=== PATIENT | female | born 1960 | race Caucasian/White ===

== ENCOUNTER 2017-02-14 22:22 | Inpatient (IN) | payer OTHER ==
[~2017-02-14] VITALS: Ht 170.2 cm; Wt 84.6 kg
[~2017-02-14 22:22] MED LIST: ALBUTEROL2.5 MG/3 M INH; ASPIR-LOW81 MG PO; AZITHROMYCIN500 MG PO; BENZONATATE100 MG PO; CLARITIN10 MG PO; COMBIVENT RESPIM4 GM INH; DILTIAZEM ER120 M1 PO; DOCUSATE CALCI240 MG PO; FAMOTIDINE20 MG PO; FLONASE ALLERG9.9 ML NS; FUROSEMIDE40 MG PO; IPRAT-ALBUT 0.5-3 ML INH; KEFLEX500 MG PO; MAGNESIUM400 MG PO; METOPROLOL TART25 MG PO; MIRALAX17 GM PO; NICORETTE2 MG MM; NICOTINE PATCH1 EA TD; NORCO 5-325 TA1 EACH PO; POTASSIUM CHLO20 ME1 PO; PREDNISONE20 MG PO; TYLENOL325 MG PO
[2017-02-14] MEDS ORDERED: OSTERA TABLET1 EACH PO (22:36)
--- NOTE | 2017-02-15 03:00 | NUR ---
PATIENT RESTING IN BED. WEARING BIPAP MASK AT THIS TIME. RR 24. O2 SAT 100%. IV FLUIDS INFUSING. CALL LIGHT IN REACH.
--- NOTE | 2017-02-15 03:18 | NUR ---
PT ARRIVES TO CCU ROOM 126, SLIDES OVER TO BED HERSELF FROM STRETCHER. ACCOMPANIED BY RT WHO IMMEDIATELY PLACES PT ON BIPAP 12/5 FIO2 30%. LUNGS VERY DIM AND TIGHT THROUGHOUT WITH SLIGHT EXP WHEEZES HEARD THROUGHOUT. PT DENIES NEED TO VOID AT THIS TIME. SLEEPY AND SOB WITH TALKING SO WILL HOLD MAJORITY OF ADMISSION QUESTIONS UNTIL LATER TIME. IVF STARTED AT 125ML/HR. SIDE RAILS UP AND BED ALARM ON. ISOLATION PRECAUTIONS IN PLACE PT IS POSITIVE FOR INFLUENZA B.
--- NOTE | 2017-02-15 04:45 | NUR ---
RT IN TO DO NEB THROUGH BIPAP AND DRAW ABG. ASSESSMENT DONE. PT STILL VERY SLEEPY.
--- NOTE | 2017-02-15 05:40 | NUR ---
PT UP TO BR TO VOID, MISSED HAT. DENIES DIZZINESS/LIGHTHEADEDNESS WHEN UP, HR REMAINS STEADY BUT BECOMES VERY SOB. PT ON ROOM AIR WENT DOWN TO 78%, BIPAP PLACED AND SPO2 BACK UP TO 96%. FEELING ANXIOUS REGARDING BIPAP, SAYING SHE DOESNT WANT TO WEAR IT AND FEELS SUFFOCATED, PT REASSURED AND ENCOURAGED TO RELAX AND TRY TO KEEP IT ON. PT EVENTUALLY RELAXES AND LIES BACK TO TRY TO SLEEP SOME MORE.
--- NOTE | 2017-02-15 06:19 | NUR ---
RESULTS OF ABG DISCUSSED WITH RT, RT WILL BE IN TO TURN FIO2 UP A BIT. ABG WAS DRAWN AFTER PT WAS WEARING BIPAP CONTINUOUSLY FOR APPROX 90 MINUTES.
--- NOTE | 2017-02-15 09:35 | NUR ---
IV SITE DC'D DUE TO PT C/O PAIN AT SITE. TIP OF CATH INTACT, NO REDNESS OR SWELLING NOTED.
--- NOTE | 2017-02-15 10:45 | NUR ---
18 G IV STARTED IN PT LEFT FOREARM. PT ENEIDA WELL, IV FLUIDS RESTARTED. PT FALLS BACK TO SLEEP EASILY. WHEN AWAKE, PT IS POLITE AND COOPERATIVE, AND ORIENTED X4. PT STATES SHE IS "WORN OUT".
--- NOTE | 2017-02-15 11:50 | NUR ---
pt up ambulated to the bathroom with standby assist. pt able to void 375 ml concentrated urine. pt washed hands and brushed teeth. pt then ambulated back to bed. pt states "that really took it out of me".
--- NOTE | 2017-02-15 12:05 | NUR ---
full report given to Raven MIRELES. pt to transfer to room 114.
--- NOTE | 2017-02-15 12:30 | NUR ---
FULL BODY ASSESMENT DONE, PATIENT RESTING BACK IN BED. WON'T ANSWER QUESTIONS WHEN ASKING PATIENT QUESTIONS, CLENCHING EYES. PATIENT RESTING EASY. 02 SATURATION 95%. CONT PUSLE OX ON. DOES NOT APPEAR TO BE IN DISTRESS, WILL REAPPROACH PATIENT AFTER SETTLES TO ROOM. CALL LIGHT IN REACH.
--- NOTE | 2017-02-15 14:43 | NUR ---
PATIENT UP TO BATHROOM, ATE MOST OF LUNCH. TOLERATED ACTIVITY WELL. OXYGEN SATURATION 98% ON 2L. PATIENT WATCHING TELEVISION, REPORTS NO PAIN AT THIS TIME, RESTING EASY.
--- NOTE | 2017-02-15 18:28 | NUR ---
PATIENT UP TO BATHROOM, CALLING LALITHA FOR STBY. APPEARS TO BE TOLERATING ACTIVITY WELL. OXYGEN SATURATIONS 95% ON 2L NC. CONT PULSE OX ON. ENCOURAGE BIPAP. EATING WELL. TRANSFERED FROM CCU TODAY.
--- NOTE | 2017-02-15 19:10 | NUR ---
SHIFT REPORT RECIEVED. PATIENT RESTING IN BED AFTER SPENDING TIME UP IN THE BATHROOM. SHE WAS ABLE TO HAVE A SMALL BM. PATIENT'S O2 SAT 100% ON 2L NC. PATIENT DENIES NEEDS AT THIS TIME. CALL LIGHT IN REACH.
--- NOTE | 2017-02-15 22:00 | NUR ---
EVENING MEDS GIVEN PER ORDER. PATIENT BACK IN BED AFTER GETTING UP TO THE BATHROOM. O2 SAT 86% ON 2L NC. O2 SAT 98% AFTER 3MINS AT REST. PATIENT APPEARS SOB AND HAS A PRODUCTIVE COUGH. PATIENT IS AAOX3. IV FLUIDS INFUSING, SITE WNL. PATIENT DENIES PAIN OR NAUSEA AT THIS TIME. NO OTHER NEEDS. CALL LIGHT IN REACH.
--- NOTE | 2017-02-15 22:41 | EKG ---
[facility] [address] [facility] [place] [address] Signed Sinus tachycardia Nonspecific ST and T wave abnormality Abnormal ECG When compared with ECG of 09-JUL-2016 17:41, premature atrial complexes are no longer present Nonspecific T wave abnormality now evident in Lateral leads Confirmed by GREGORY NGUYEN MD ([id number]) on 02/15/2017 10:41:17 PM Electronically Signed By: GREGORY NGUYEN MD 02/15/17 2241 PATIENT NAME: JESICA DENNIS Electrocardiogram DATE OF : 56 PHYSICIAN: GREGORY NGUYEN MD REPORT #: [id number] REPORT IS CONFIDENTIAL AND NOT TO BE RELEASED WITHOUT AUTHORIZATION
--- NOTE | 2017-02-15 23:22 | NUR ---
pt on bipap, up to bsc. voided, back to bedm cont pulse ox in place. pt desatted to 80% when up. hacky non productive cough present, back on bipap. sats inmediately back up to 97%. p 107 r 24, sob present with movenent. Pt reassured as she was very anxious. calmer. watching tvm sats now up to [address]
--- NOTE | 2017-02-16 01:45 | NUR ---
PATIENT REQUESTING CPAP TO BE TAKEN OFF AND STATES "I CAN'T TAKE IT ANYMORE. I NEED THIS THING OFF." PATIENT'S APPEARS ANXIOUS AND IS DYSPNEIC. O2 SATURATION DOWN TO 87% ON ROOM AIR, 2L O2 APPLIED. INSTRUCTED PATIENT TO TAKE DEEP BREATHES. O2 SATURATION QUICLY WENT TO 94% ON 2L O2 VIA NC. WILL REMAIN IN ROOM UNTIL PATIENT IS LESS ANXIOUS.
--- NOTE | 2017-02-16 01:50 | NUR ---
PATIENT NOW RESTING COMFORTABLY, BREATHING IS EVEN AND UNLABORED. O2 SATURATION IS 94% ON 2L O2 VIA NC. PATIENT STATES "I FEEL MUCH BETTER. I AM JUST A LITTLE WARM." TEMPERATURE IS 97.9, TURNED TEMPERATURE DOWN IN ROOM, APPLIED COOL CLOTH TO FOREHEAD. ASSISTED TO BATHROOM, REFILLED WATER. PATIENT DENIES FURTHER NEEDS AT THIS TIME. VITALS DONE. CALL LIGHT WITHIN REACH.
--- NOTE | 2017-02-16 02:29 | NUR ---
RT REQUESTED ASSISTANCE. PATIENT WAS FEELING VERY PANICED ABOUT WEARING THE BIPAP. RT AND RN EXPLAINED BENEFITS TO THE PATIENT AND DEMONSTRATED HOW TO TAKE THE MASK OFF IF NEEDED. PATIENT AGREED TO WEAR THE BIPAP AT THIS TIME. RT PLACED BIPAP ON. CALL LIGHT IN REACH.
--- NOTE | 2017-02-16 04:23 | NUR ---
PT IN BED WEARING BIPAP, SATS 100%. PT UP TO BSC WITH ASSIST, VOIDED CLEAR YELLOW URINE, SAT ON EDGE OF BED, DESATTED TO 85%. BIPAP BACK ON SATS WENT UP TO 97% - 100% INMEDIATELY, RESP 25.
--- NOTE | 2017-02-16 06:04 | NUR ---
Pt HOB up 30o, O2 1L/NC in place, cont pulse ox inplace, sats 93-94%. R24, no resp distress, eyes closed, resting comfortably.
--- NOTE | 2017-02-16 07:48 | NUR ---
REPORT FROM ALINE HUFF. PT ASLEEP IN BED WITH IVF RUNNING. SATS 100% HR 89. SLEEPING ON SIDE WITH BIPAP ON.
--- NOTE | 2017-02-16 08:24 | NUR ---
PT REFUSED STOOL SOFT. AND LAX. SHE HAD A BM YESTERDAY AND FEELS FINE. PT ANXIOUS ABOUT WEARING BIPAP. OFFERED AZUL COSTA. SHE STATE SHE SMOKES FOR ANXIETY RELIEF AT HOME. STATES SHE WILL TRY IT. BREAKFAST ARRIVED AND PT IS ATTEMPTING TO EAT. ADMINSITERED MORN. MEDS. LUNGS WHEEZES THROUGOUT.
--- NOTE | 2017-02-16 10:05 | NUR ---
[id number] WAS IN BED WE DID VITAL SIGNS AND SHE NEEDED NO OTHER ASSISTANCE.
--- NOTE | 2017-02-16 10:27 | NUR ---
PT LAYING IN BED WATCHING TV. DENIES NEEDS ATT. TURNED OUT LIGHT PER REQUEST. PT ON NC ATT.
--- NOTE | 2017-02-16 11:15 | NUR ---
REMOVED PT TELE UNIT. PT ASLEEP UNTIL AWOKEN TO REMOVE IT.
--- NOTE | 2017-02-16 11:36 | NUR ---
PT CALLED WITH A PANIC ATTACK. HER NC HAD FALLEN OFF WHEN SHE SAT UP TO USE RESTROOM AND SHE COULDNT FIGURE OUT HOW TO PUT IT BACK ON. PLACED THE CANNULA ON AND INSTRUCTED HER TO DEEP BREATHE. SATS QUICKLY RECOVERED AND RT SHOWED UP TO DO NEB TREATMENT.
--- NOTE | 2017-02-16 14:42 | NUR ---
PT IS RESTING IN BED WITH CALL LIGHT IN REACH. PT DID NOT NEED ANYTHING ELSE AT THE MOMENT
--- NOTE | 2017-02-16 15:27 | NUR ---
PT TALKING TO VISITOR. DENIES CONCERNS ATT
--- NOTE | 2017-02-16 16:57 | NUR ---
PT WALKED A LOOP IN APPIAH AND MAINTAINED SATS IN LOW 90'S ON 2LNC. TOLERATED WELL. BACK IN BED AFTER WAKING HER TO WALK.
--- NOTE | 2017-02-16 18:09 | NUR ---
PT WALKED IN APPIAH X1. TOLERATED WELL. BIPAP DC'D. SL. 2L NC. TELE DC'D. VISTIRIL STARTED FOR ANXIETY. 1 DOSE GIVEN.
--- NOTE | 2017-02-16 19:15 | NUR ---
PT RESTING, O2 2L N/C IN PLACE. CONT PULSE OX IN PLACE SATS97%
--- NOTE | 2017-02-16 23:22 | NUR ---
PT UP TO BRP, INDEPENDENT. VOIDED LARGE AMOUNT OF CLEAR URINE. NO C/O PAIN. BACK TO BED. SOB WITH EXERTION, CONT PULSE OX IN PLACE. SATS 85% WITH O2 IN PLACE. BACK TO BED. SATS 98% WITH O2 AFTER RESTING. MOIST NON PRODUCTIVE COUGH PRESENT. SL PATENT
--- NOTE | 2017-02-17 01:56 | NUR ---
prn neb tx done at pts request c/o sob. pulse ox 91% on 2L/NC. r 28, pulse 126
--- NOTE | 2017-02-17 02:53 | NUR ---
PT INCREASED ANXIETY, MEDICATED WTIH VISTARIL 25MG. PT CONTINUES TO HAVE FREQUNET BOUTS OF MOIST NON PRODUCTIVE COUGH. O2 2L N/C. SATS 94%, P100, R 22
--- NOTE | 2017-02-17 04:14 | NUR ---
Pt resting at this time, O2 2L n/c on
--- NOTE | 2017-02-17 05:48 | NUR ---
Pt currently resting, eyes closed, resp 26, cont pulse ox sats 98%, pulse 89, O2 3L N/C, was increased by RT earlier as pt desatted to the mid 60's%. Pt continues to state that she does not want the bipap again as the mask made her feel very claustrophobic. Positive reasong to try the bipap again given to pt, not receptive. Pt gets up to brp with minimum of assist and wears the O2 at all times. Lungs continue to have crackles and exp wheezing. sob with exertion Was medicated wt Vistaril x1 for anxiety, effectiv. SL intact. large quantities of clear yellow urine. Continues on Droplet Isolation.
--- NOTE | 2017-02-17 06:54 | NUR ---
PATIENT CALLED NEED HELP PUT THE NASAL CANNULA BACK TO HER NOSE. PATIENT ASKED FOR BREATHING TREATMENT. RN MONSTER NOTIFIED.
--- NOTE | 2017-02-17 07:19 | NUR ---
RECIEVED REPORT FROM ALINE HOOK. PT ON CONTINOUS PULSE OX, SAT 96% ON 2L O2 VIA NC.
--- NOTE | 2017-02-17 07:42 | NUR ---
SWETA WAS IN BED, I TOLD HER BREAKFAST WILL BE HERE SOON, SHE DIDNT WANT TO BRUSH HER TEETH AND SHE SAID MAYBE.
--- NOTE | 2017-02-17 09:31 | NUR ---
PT WAS LAYING IN BED, SHE SAID SHE DIDNT GET MUCH SLEEP, SHE HAD HER EYES CLOSED THE WHOLE TIME I WAS DOING HER VITALS, I DID A MANUAL BP.
--- NOTE | 2017-02-17 09:40 | NUR ---
PT GIVEN AM MEDICATIONS. PT HAS NON PRODUCTIVE COUGH. IS ON 3L O2 VIA NC. PULSE OX INDICATES SATURATION LEVEL 96%.
--- NOTE | 2017-02-17 12:25 | NUR ---
DR. NGUYEN IN TO SEE PT. ASKED THIS RN TO ENCOUARGE PT TO AMBULATE.
--- NOTE | 2017-02-17 13:39 | NUR ---
PT WAS ASLEEP IN BED, SHE DIDNT WAKE UP BUT TO LET ME DO HER BP, SHE WAS ASLEEP FAST AFTER I FINISHED HER TEMP.
--- NOTE | 2017-02-17 15:49 | NUR ---
PT SITTING UP IN RECLINER, RECIEVING NEBULIZER TREATMENT. PT ON 3L O2 VIA NC, OXYGEN SATURATION LEVEL 96%. LUNGS HAVE EXPIRATORY WHEEZES, WITH COARSE SOUNDS THROUGHOUT. PT DENIED PAIN.
--- NOTE | 2017-02-17 15:57 | NUR ---
PT UP TO BATHROOM WITH STANDBY ASSIST, STEADY ON FEET. ASSISTED TO SET UP FOR SHOWER, PT NOW SHOWERING. PROVIDED PT EDUCATION REGARDING THE NEED TO CALL FOR ASSISTANCE ONCE SHE COMPLETES SHOWER.
--- NOTE | 2017-02-17 16:13 | NUR ---
PATIENT JUST TOOK HER SHOWER, SHE SAID SHE WILL WALK AFTER DINNER
--- NOTE | 2017-02-17 16:53 | NUR ---
PT TIRED THIS AM AND EARLY AFTERNOON, SLEPT OFF AND ON, REPORTED VERY POOR SLEEP LAST NIGHT. DID GET UP TO CHAIR THIS AFTERNOON, THEN TOOK SHOWER. IS UP IN RECLINER, AND STATED THAT SHE WILL AMBULATE IN HALLS SOON. PT REMAINS ON DROPLETTE PRECAUTIONS. IV IS SALINE LOCKED. APETITE POOR THIS AM AND AT LUNCH, BUT PT EXPRESSED MORE INTEREST IN FOOD AFTER SHOWER, AND HER APETITE HAS IMPROVED. PT STARTED TESSLON PEARLS THIS AFTERNOON FOR COUGH. IS UP WITH STANDBY ASSIST, IS STEADY ON FEET. HAS BEEN ON 3L O2 VIA NC TO MAINTAIN OXYGEN SATURATION LEVEL GREATER THAN 90%. LUNG SOUNDS COARSE, WITH EXPIRATORY WHEEZES AND CRACKLES.
--- NOTE | 2017-02-17 17:41 | NUR ---
PT'S PULSE OXYMETER SENSOR ALARMED, NOT SENSING PULSE AT TIMES. REPLACED PULSE OXYMETER SENSOR, OXYGEN SATURATION LEVEL 95% ON 3L O2 VIA NC, PULSE 85 BPM. ASSISTED PT IN POSITIONING TRAY TABLE FOR DINNER. PT DENIED OTHER NEEDS. DENIED PAIN.
--- NOTE | 2017-02-17 19:20 | NUR ---
resting. o2 3l n/c, cont p ox 95% 85P, R22
--- NOTE | 2017-02-17 21:56 | NUR ---
PATIENT CALLED NEED HELP USE THE BEDSIDE COMMODE. ASKED FOR 7 UP AND ICE.
--- NOTE | 2017-02-18 00:40 | NUR ---
pt up to bsc, voided back to bed, tolerated well, cont pulse ox inplace prior to standing up 97% p79, after voiding 91% p90, r 26.
--- NOTE | 2017-02-18 02:26 | NUR ---
RESTING, o2 3l n?c IN PLACE, SATS 96% p91, R20, CALM, NO RESP DISTRESS NOTED AT THIS TIME,
--- NOTE | 2017-02-18 05:58 | NUR ---
Pt continues to be on Droplet Isolation for Influenza B . O2 3L NC. cont pulse ox in place satting 97% p81 r20. Lungs continue to have exp wheezing and crackles bilat. Pt hs done much better tranferring to bsc and not getting sob. Receiving Tessalon Pears 200mg po with much improved cough, very infrequent now. Pt continues to c/o rib area pain when coughing, denies need for pain med. SL intact.
--- NOTE | 2017-02-18 07:20 | NUR ---
RECIEVED REPORT FROM ALINE HOOK. PT SLEEPING SOUNDLY. 3L O2 VIA NC GOING, PULSE OX SHOWED SAT 95%.
--- NOTE | 2017-02-18 07:49 | NUR ---
PATIENT SITTING UP IN BED EATING BREAKFAST. PATIENT REFUSED TO SIT UP IN CHAIR. PATIENT DOES NOT WANT TO SHOWER THIS AM. SHE STATES THAT AFTER EATING SHE IS GOING TO GO BACK TO SLEEP. NO OTHER NEEDS AT THIS TIME. CALL BUTTON IN REACH.
--- NOTE | 2017-02-18 08:21 | NUR ---
PT ATE 50% OF BREAKFAST. DENIED PAIN, CONTINUES TO HAVE NONPRODUCTIVE COUGH. GAVE SCHEDULED TESSLON PEARLS. PT'S LUNGS HAVE EXPIRATORY WHEEZES AND FAINT CRACKLES THROUGHOUT. PT ON 3L O2 VIA NC, OXYGEN SATURATION LEVEL 93%. ASKED PT TO AMBULATE IN HALLS, PT STATED THAT SHE IS GOING TO SLEEP SOME MORE, AND THAT WHEN SHE WAKES UP SHE WILL AMBULATE IN HALLS WITH NURSING STAFF.
--- NOTE | 2017-02-18 09:14 | NUR ---
LUTHER, RESPIRATORY THERAPIST REPORTED TO THIS RN THAT SHE DID HOME O2 EVALUATION WITH PT, AND THAT WHEN PT WAS UP OOB, ON RA HER HR WAS IN 150s, AND WAS IN 140s WITH 3L O2 ON WHEN UP OUT OF BED. REPORTED THAT PT DISPLAYED INCREASED WORK OF BREATHING WITH ACTIVITY IN ROOM, AND THAT ONCE BACK IN BED, PT'S HR RETURNED TO 90s, AND PT'S WORK OF BREATHING DECREASED. LUTHER REPORTED THAT PT DID MAINTAIN OXYGEN SATURATION LEVEL WHEN UP WITH 3L O2 ON. NOTIFIED DR. NGUYEN OF ABOVE NOTED, ASKED IF HE WANTED TO PLACE PT ON TELE, AND/OR DO AN EKG. DR. NGUYEN GAVE TORB TO DO EKG. NOTIFIED RT MONTSE VIA TELEPHONE OF ORDER FOR EKG.
--- NOTE | 2017-02-18 09:54 | NUR ---
PT PLACED ON TELEMETRY, IN AFIB WITH RVR AND PVCs. DR. NGUYEN AT BEDSIDE. HR 156. GAVE DLITIAZEM [address] PATRICK PECK AT BEDSIDE.
--- NOTE | 2017-02-18 09:59 | NUR ---
DR. NGUYEN AT BEDSIDE, PT'S HR REMAINED IN 150s, RECIEVED VORB AT BEDSIDE FROM DR. NGUYEN TO GIVE 15 MG IV DILTIAZEM. 15 MG IV DILTIZEM GIVEN. DR. NGUYEN GAVE VORB TO GIVE DILTIAZEM DRIP, AT 15 MG PER HOUR.
--- NOTE | 2017-02-18 10:02 | NUR ---
PT'S HR IN 130s AFTER DOSE OF DILTIAZEM [address] NGUYEN LEFT PT'S ROOM, BUT BEFORE HE LEFT, HE REPORTED THAT HE WILL PLACE ORDER FOR DILTIAZEM DRIP.
--- NOTE | 2017-02-18 10:25 | NUR ---
REPORT CALLED TO ALINE RIVAS IN CCU. PT REMAINS ON TELEMETRY, HR 110.
--- NOTE | 2017-02-18 10:43 | NUR ---
PT TRANSFERED TO ROOM 128 VIA BED ACCOMPANIED BY THIS RN, FLORENTIN Coulter, NURSING BINDER FOLDER OPERATOR, AND KATHERYN VELAZQUEZ. GAVE BEDSIDE REPORT TO EYAL CCU RN. PT TRANSFERED AT 1040.
--- NOTE | 2017-02-18 10:50 | NUR ---
ARRIVED TO RM 128 VIA BED FROM [facility]. UPON ADMIT TO CCU PATIENT IS ALERT, ORIENTED. MONITOR SHOWS AFIB WITH RVR. CARDIZEM GTT STARTED AT 15 MG/HR. PAITENT IS WITH EXTREME SHORTNESS OF BREATH. LUNGS ARE TIGHT WITH SCATTERED WHEEZES. HOB ELEVATED. TALKED WITH PATIENT ABOUT POC. IS IN ISOLATION DUE TO B+ FLU.
--- NOTE | 2017-02-18 11:45 | NUR ---
UP TO COMMODE WITH ASSIST. IS WITH INCREASED SHORTNESS OF BREATH WITH EXERTION. HR WITH EXERTION TO 120 THEN WHEN BACK TO BED DOWN TO < 100.
--- NOTE | 2017-02-18 12:00 | NUR ---
ASSESSMENT DONE. HR<100.
--- NOTE | 2017-02-18 14:00 | NUR ---
RESTFUL. REMAINS ON CARDIZEM DRIP AT 15 MG IV.
--- NOTE | 2017-02-18 17:30 | NUR ---
UP TO COMMODE TO VOID. HR 85 W/ EXERTION. IS LESS SOB WITH EXERTION. BACK TO BED W/O INCIDENT. TOOK DINNER WELL. LUNGS REMAIN TIGHT.
--- NOTE | 2017-02-18 19:05 | NUR ---
PATIENT ASKED FOR SOME JELLO AND A SODA POP.
--- NOTE | 2017-02-18 20:07 | NUR ---
PT CONVERTED TO S.R. AT [address] NGUYEN TO UPDATE. 50MG LOPRESSOR GIVEN PO, CARDIZEM GTT DECREASED TO 10MG/HR. PT DENIES PAIN, OR NOTING ANYTHING FEELING DIFFERENT. EXPLAINED PLAN OF CARE TO PT.
--- NOTE | 2017-02-18 20:29 | NUR ---
DECREASED CARDIZEM GTT TO 5MG/HR, HR 65, BP 122/69. PT ASLEEP.
--- NOTE | 2017-02-18 21:42 | NUR ---
CARDIZEM GTT DC'D AT 2130. HR 55, BP 123/76
--- NOTE | 2017-02-18 23:50 | EKG ---
[facility] [address] [place] [address] Signed Atrial fibrillation with rapid ventricular response with premature ventricular or aberrantly conducted complexes ST \T\ T wave abnormality, consider inferior ischemia Abnormal ECG When compared with ECG of 14-FEB-2017 22:50, Atrial fibrillation has replaced Sinus rhythm Nonspecific T wave abnormality now evident in Inferior leads Confirmed by GREGORY NGUYEN MD ([id number]) on 02/18/2017 11:50:10 PM Electronically Signed By: GREGORY NGUYEN MD 02/18/17 2350 PATIENT NAME: JESICA DENNIS Electrocardiogram DATE OF : 56 PHYSICIAN: GREGORY NGUYEN MD REPORT #: [id number] REPORT IS CONFIDENTIAL AND NOT TO BE RELEASED WITHOUT AUTHORIZATION
--- NOTE | 2017-02-19 00:47 | NUR ---
PT WAS AWKAE AT 0001 AND ASKING FOR JELLO, TOOK 2 CONTAINERS AND THEN BACK TO SLEEP. AWAKENED FOR ASSESSMENT. HAS NO C/O. BREATH TONES HAVE SCATTERED WHEEZES.
--- NOTE | 2017-02-19 02:45 | NUR ---
AWAKE, UP TO BSC TO VOID. ENEIDA BEING UP WELL. REMAINS IN SR.
--- NOTE | 2017-02-19 02:46 | NUR ---
C/O BODY ACHES, REQUESTING TYENOL, GIVEN 650MG PO. BREATH TONE ARE COARSE POST DANI, ESS CLEAR UPPER ANT.
--- NOTE | 2017-02-19 04:28 | NUR ---
PT C/O OF BACK PAIN AND REQUESTED TO SLEEP IN CHAIR (0330). CURRENTLY ASLEEP WITHOUT DISTRESS.
--- NOTE | 2017-02-19 07:30 | NUR ---
REPORT RECIEVED. PATIENT IS ASLEEP.NO DISTRESS NOTED.
--- NOTE | 2017-02-19 08:30 | NUR ---
TOOK BREAKFAST WELL. PATIENT C/O FEELING TIRED. HAS GENERALIZED BODY ACHE. IS AWARE OF PLAN OF CARE FOR DAY.
--- NOTE | 2017-02-19 10:20 | NUR ---
DR. NGUYEN HERE TO SEE PATIENT.
[2017-02-19] MEDS ORDERED: ELIQUIS5 MG PO (10:51)
--- NOTE | 2017-02-19 11:19 | NUR ---
PT GOING TO XRAY
--- NOTE | 2017-02-19 11:35 | NUR ---
RETURNED TO CCU FRON XRAY. TOLERATED XRAY WELL. MICH SHORTNESS OF BREATH. TO BR TO VOID 400 ML OF CLEAR MARCUS URINE. ROUTINE NEB TREATMENT GIVEN.
--- NOTE | 2017-02-19 12:45 | NUR ---
TOOK LUNCH WELL. IS W/O C/O.
--- NOTE | 2017-02-19 15:45 | NUR ---
TO SHOWER VIA SHOWER CHAIR. TOLERATED SHOWER WELL. THEN BACK TO ROOM AND TELE APPLIED. ASSESSMENT DONE.
--- NOTE | 2017-02-19 17:30 | NUR ---
TOOK DINNER WELL. IS W/O. TRANSFER TO MED-SURG ORDERS RECIEVED.
--- NOTE | 2017-02-19 19:33 | NUR ---
REPORT TO NEXT SHIFT.
--- NOTE | 2017-02-19 19:52 | NUR ---
PT COUGHING, C/O BEING TOO HOT, " I'M BURNING UP!" T 99.2. COVERS OFF AND GIVEN COOL CLOTH. THEN UP TO BSC TO VOID THEN TO CHAIR. WAS ANXIOUS, STARTING TO CALM. GIVEN TYLENOL 650MG PO FOR COMFORT AND HS TESSALON PEARLS. RESTING NOW IN CHAIR.
--- NOTE | 2017-02-19 22:15 | NUR ---
HAS BEEN RESTING. GIVEN JELLO AND SODA PER REQUEST.
--- NOTE | 2017-02-20 | NUR ---
PT REPORT RECIVED FROM OTHER RN. THIS RN IS NOW TAKING CARE OF THIS PT. PT IS RESTING IN BED. PT UP TO BEDSIDE CAMMODE WITH NO ISSUES. PT TOLERATED WELL. ASSESSMENT COMPLETED. BREATH SOUNDS DIMINISHED AND OCCASIONAL WHEEZE. PT DENIED HER NEB TREATMENT BECAUSE SHE IS SLEEPING. WILL CONTINUE TO CLOSELY MONITOR.
--- NOTE | 2017-02-20 02:00 | NUR ---
PT RESTING WELL ON 2L NC WITH SPO2 95-98%. PT HR 70-80'S WILL CONTINUE TO CLOSELY MONITOR.
--- NOTE | 2017-02-20 03:16 | NUR ---
PT CALLED TO GET UP TO BEDSIDE CAMMODE. PT UP EASILY. PT DOES BECOME SOB WITH ACTIVITY. PT BACK TO BED. GAVE SCHEDULED NEB. VITALS COMPLETED. ASSESSMENT COMPLETED WITH NO CHANGES FROM PREVIOUS ASSESSMENT.
--- NOTE | 2017-02-20 05:00 | NUR ---
PT RESTING IN BED. PT HR IS 70-80'S AT REST. SPO2 IS 95% ON 2L AT THIS TIME. WILL CONTINUE TO CLOSELY MONITOR.
--- NOTE | 2017-02-20 06:00 | NUR ---
PT RESTING IN BED. PT CALLS APPROPRIATELY. WILL CONTINUE TO CLOSELY MONITOR PATIENT. CALL LIGHT IN REACH. PT HAS SLEPT WELL THIS EVENING.
--- NOTE | 2017-02-20 07:45 | NUR ---
pt ambulated to bathroom, no increased sob noted, contioues to have dry cough hackey in sound.
--- NOTE | 2017-02-20 08:13 | NUR ---
PT BKF PRESENT AND PT IS EATING WELL. GAVE THE FOLLOWING PT EDUCATION HANDOUTS ON INFLUENZA AND COUGH FOR ADULTS. PT SITTING UP IN BED AETTING BKF AND TOOK AM MEDS.
--- NOTE | 2017-02-20 09:40 | NUR ---
PT UP TO THE BATHROOM, AMBULATED WELL, THEN CHF EDUCATOR INTO VISIT WITH PT, THEN PT REQUESTED A PRN NEB TX.
--- NOTE | 2017-02-20 10:04 | NUR ---
PT RECEIVED PHONE CALL, BECAME UPSET YOU COULD HEAR HER CURSING AT THE PERSON ON THE PHONE. PT DID NOT CALL FOR STAFF. IT APPEARS PT IS RESTING.
--- NOTE | 2017-02-20 10:54 | NUR ---
PT SLEEPING ON RIGHT SIDE WITH REU. SATS 95% ON 2L PER NC.
--- NOTE | 2017-02-20 11:36 | NUR ---
Heart Failure initial education for new diagnosis. Recent echo EF 30-35%. BNP 241 on admit. Admit bed weight 186#. Patient exhibits little knowledge of HF or self care needs. Learning ability may currently be limited by fatique from acute illness/CCU stay. Given HF folder with book and handouts. PHQ9 deferred due to acute illness. States she has social support but was not specific. Per chart sister and brother are emergency contacts. She states she has her own transportation. Owns scales and weekly pill box. Denies any communication or reading problems. Diet: Cooks for self. States diet is limited due to lack of smell and taste since another critical illness. She mostly eats chicken noodle soup since she can remember what it tastes like. Plan: Return when patient is not so tired to discuss self care and have patient view HF video. Recommend: Initiate multidisciplinary HF DC Readiness check list. [employer] referral for low sodium diet and from self reported anosmia. CAILIN-I/ARB or documentation of why not initiated. Cardiology consult post discharge.
--- NOTE | 2017-02-20 12:53 | NUR ---
ASSESSMENT COMPLETED, DENIES C/O, UP TO BRENDA CHAIR WITH MINIMAL ASSIST.
--- NOTE | 2017-02-20 15:04 | NUR ---
PT WOKE I ENTERED HER RM. SHE IS TO BE MOVED TO [facility] LATER TODAY-SHE HAS IMPROVED. PT STILL EMOTIONAL ABOUT HER SAY HERE-WORRIED STILL ABOUT HER BUSINESS. PRAYED WITH HER, WILL FOLLOW NEEDED
--- NOTE | 2017-02-20 15:18 | NUR ---
PT TELE UNIT REMOVED PER DR ORDER. PT UP TO RESTROOM INDEPENDENTLY. TOLERATED WELL. DENIES NEEDS.
--- NOTE | 2017-02-20 15:50 | NUR ---
DR NGUYEN IN ROOM TO ASSESS PATIENT. RT ALSO IN ROOM TO GIVE PATIENT A BRATHING TREATMENT. PATIENT REPORTS SOB, HAVING HARD TIME CATCHING HER BREATH. PATIENT ASSESSMENT DONE. LUNG COARSE, FINE CRACKLE AND EXPIRATORY WEEZE. DYSPNEA. REPORTS NON-PRODUCTIVE COUGH. NO EDEMA. WORK OF BREATHING BETTER AFTER NEB TX. RESTING IN THE CHAIR AT THIS TIME. FAMILY IN ROOM VISITING.
--- NOTE | 2017-02-20 16:53 | NUR ---
PT APPEARS TO BE SLEEPING. INDEPENDENT IN ROOM. UO QS.
--- NOTE | 2017-02-20 17:05 | NUR ---
VISITED WITH PT AND SHE HAS NOT CONCERNS AT THIS TIME ABOUT GOING HOME WHEN SHE IS READY TO BE DC. PT BROTHER IS ASKING ABOUT THE RX THAT THE PHARMACY WAS TO BE CHECKING AND SEEING IF IT IS COVERED BY INSURANCE. I CALLED OUR PHARMACY AND ASKED THEM TO CHECK ON THIS FOR ME. MIAN FROM PHARMACY STATED SHE CALLED AND THE PHARMACY HADN'T GOTTEN THE ORDER YET SO SHE ORDERED IT AND THEY TOLD HER TO CALL BACK IN A FEW AND CHECK ON IT. NOTIFIED THAT INSURANCE APPROVED IT WITH NO CO PAY. PHARMACY NOTIFIED PT
--- NOTE | 2017-02-20 17:43 | NUR ---
Medications reconciled with patient interview
--- NOTE | 2017-02-20 17:52 | NUR ---
PT'S DINNER WAS COLD WHEN BROUGHT TO HER. THIS ENVIRONMENTAL SERVICE AIDE OFFERED TO WAR PT'S FOOD OR ORDER HER SOMETHING ELSE. PT IS UPSET AND SAYS, "FORGET, I DON'T EVEN WANT IT ANYMORE." PT THEN CALLS A FAMILY MEMBER AND TELLS THEM, HER FOOD WAS COLD AND SHE WANTS THEM TO BRING HER SOMETHING. PT BECOMES MORE FRUSTRATED BECAUSE FAMILY ISN'T ABLE TO BRING HER NAYTHING. THIS ENVIRONMENTAL SERVICE AIDE OFFERS FOR A SECOND TIME TO WARM HER FOOD UP OR ORDER SOMETHING DIFFERENT. PT SAYS, "NO I AM FINE, I'LL FIGURE IT OUT." ALINE MAXWELL HAS BEEN NOTIFIED. PT'S VITALS AND I&O'S TAKEN AND DOCUMENTED. WATER, OTHER DRINKS, FOOD, AND CALL LIGHT ARE IN REACH FOR THE PT.
--- NOTE | 2017-02-20 19:10 | NUR ---
RECEIVED REPORT FROM DAY SHIFT RN. PATIENT IS RESTING IN BED VISITING WITH A A FRIEND A THE BEDSIDE. PATIENT DENIES ANY NEEDS AT THIS TIME. CALL LIGHT IN REACH.
--- NOTE | 2017-02-20 20:49 | NUR ---
PATIENT IN BED, SAYS SHE DOES NOT NEED ANYTHING. WHITEBOARD UPDATED, ROOM TIDIED. GREEN SHEET SWITCHED OUT.
--- NOTE | 2017-02-20 21:40 | NUR ---
PATIENT ASSESMENT COMPLETED AND RECORDED. BY JUAN MIRELES. PATIENTS MEDICATIONS GIVEN PER ORDER. PATIENT IS RESTING IN BED. PATIENT IS ON 2L VIA NC. PATIENT DENIES ANY SOB AT THIS TIME. PATIENT DENIES ANY PAIN. PATIENT DENIES ANY NEEDS AT THIS TIME. PATIENT REMAINS IN DROPLET PRECUATIONS. PATIENT IS INDEPENDENT IN THE ROOM. NO FURTHER NEEDS NOTED. CALL LIGHTIN REACH.
--- NOTE | 2017-02-21 00:21 | NUR ---
PATIENT CALLED AND ALERTED STAFF THE SHE FLET LIKE SHE WAS HAVING AND "ANXIETY ATTACK" PATIENT GIVEN PRN ANXUETY MEDICATION PER ORDER. PATIENT REFUSED SCHEDULED NEB TREATMENT. PATIENTS VITALS TAKEN AND RECORDED. PATIENT GIVEN COOL WASH RAG FOR FOREHEAD. PATIENT DENIES ANY FURTHER NEEDS CALL LIGHT IN REACH.
--- NOTE | 2017-02-21 01:15 | NUR ---
PATIENT CALLED AND REQUESTED A PAD. PATIENT STATED "I FEEL A LOT BETTER" PATIENT IS INDEPENDENT IN THE ROOM. PATIENT DENIES ANY SOB. PATIENT DENIES ANY FURTHER NEEDS. CALL LIGHT IN REACH.
--- NOTE | 2017-02-21 03:19 | NUR ---
PATIENT IS RESTING IN BED WITH EYES CLOSED. PATIENT IS RESTING IN HER RIGHT SIDE. PATIENT REMAINS ON 2L VIA NC. PULAE OX READINGS ARE WNL. CALL LIGHT IN REACH.
--- NOTE | 2017-02-21 04:45 | NUR ---
PATIENT IS RESTING IN BED WITH EYES CLOSED. PULSE OX READINGS ARE WNL.
--- NOTE | 2017-02-21 04:46 | NUR ---
PATIENT RESTED WELL THROUGHOUT THE SHIFT. PATIENT IS ON A CARDIAC DIET AND TOLERATING WELL, NO NAUSEA NOTED. PATIENT IS ON 2L VIA NC AND PULSE OX IS IN PLACE. PATIENT IS SL AND IV FLUSHES WELL. PATIENT IS INDEPENDENT IN THE ROOM AND IS STEADY ON HER FEET. PATIENTS URINE OUTPUT IS QS. PATIENT IS AAOX3 AND USES CALL LIGHT APPROPRIATELY.
--- NOTE | 2017-02-21 05:32 | NUR ---
Pt up to brp, voiding large amounts yellow urine, O2 2L N?C. cont pulse ox 96% P 74 R 18, no c/o sob with exertion noted or stated. back to bed, Resting eyes closed. No requests
--- NOTE | 2017-02-21 06:36 | NUR ---
PATIENT CALLED TO REQUEST PRN NEB TREATMENT. PATIENT DENIES SOB. PATIENT STATES "I JUST GET TO COUGHING AND THE NEBS HELP ME TO CATHC MY BREATH". PLACED CALL TO RT. RT STATED THE WOULD BE DOWN SOON. WILL CONTINUE TO MONTIOR.
--- NOTE | 2017-02-21 06:54 | NUR ---
RT IN ROOM, PRN NEB ADMINISTERED.
--- NOTE | 2017-02-21 08:47 | NUR ---
PT AWAKE IN BED. SET PT UP FOR BRK. FRESH ICE WATER AND COFFEE. AM CARE.
--- NOTE | 2017-02-21 09:23 | NUR ---
PATIENT UNINTERESTED IN ASSESMENT AT THIS TIME, ALLOWED THIS NURES TO DO LIMITED AND LISTEN TO HEART AND LUNGS. ADMINISTERED MORNING MEDICATIONS. DISCUSSED POC FOR DAY, PATIENT STATES " I REFUSE TO HAVE OXYGEN AT HOME".
--- NOTE | 2017-02-21 09:41 | NUR ---
APPROACHED PATIENT AGAIN EXPLAINING PLAN OF CARE. PATIENT STATED " I WOULD DO ANYTHING TO GET OUT OF HERE". PATIENT NOW UP AMBULATING IN HALLS WITH IRIS RT QUALIFIYING FOR HOME 02 ASSESMENT. APPEARS TO BE TOLERATING AMBULATION WELL.
[2017-02-21] MEDS ORDERED: IPRAT-ALBUT 0.5-3 ML INH (11:29)
[2017-02-21] MEDS ORDERED: NICORETTE4 M2 BUCCAL (11:29)
[2017-02-21] MEDS ORDERED: METOPROLOL SUC100 MG PO (11:30)
[2017-02-21] MEDS ORDERED: LOSARTAN POTASS25 MG PO (11:30)
[2017-02-21] MEDS ORDERED: DELTASONE20 MG PO (11:32)
[2017-02-21] MEDS ORDERED: BUDESONIDE0.5 MG/2 M INH (11:34)
--- NOTE | 2017-02-21 11:57 | NUR ---
FAXED ORDER, RT HOME QUALIFIER, FACESHEET, ER NOTES, H AND P, PROG NOTES, VITAL SIGNS TO IN HOME MEDICAL FOR APPROVAL FOR HOME O2.
--- NOTE | 2017-02-21 12:45 | NUR ---
Heart failure education #2- Patient appears tired and is resting. Discharge is planned for this afternoon. She has not had a chance to read HF packet, encouraged to read. Reinforced daily weights, low salt diet (change to low or no salt chicken noodle soup. Follow up appointment has been made. Patient notified she will receive f/u call on Mon from RN and we will arrange time for outpatient education. She was able to state that she would notify PCP of 3lb weight gain.
--- NOTE | 2017-02-21 12:59 | NUR ---
PT IS JUST WAITING TO GO HOME. CALL LIGHT IN REACH DOING WELL
--- NOTE | 2017-02-21 13:56 | NUR ---
PT TO BE DC'D TODAY. LOTS OF ACTIVITY GETTING HER READY. SHE SEEMED EXCITED, GETTING READY TO CALL FOR HER RIDE HOME. EXTENDED A BLESSING, SHE THANKED ME FOR COMING BY
--- NOTE | 2017-02-26 14:57 | NUR ---
Heart failure follow up phone call attempt #3- Attempted to contact Ms Ellison for HF call and to arrange outpatient education dates. LM for her to call my direct line.
--- NOTE | 2017-03-04 10:51 | NUR ---
02/28/17- CHW and Summer went to CHW home and patient was not at the address, left contact card. CHW contacted Dr Holguin office, who stated patient did go to follow up appointment and patient stated to them that she does not use her oxygen as much. A referral to a telephone messenger was made by Dr Holguin at the visit. CHW can't make contact with patient. Patient does not return calls and or messages.
== END 2017-02-21 14:28 | disposition home or self-care (01) | DRG 189 ==
LOC: ED 22:22 → CCU 02-15 02:11 → MS 02-15 11:50 → CCU 02-18 10:40 → MS 02-20 14:59
PROVIDERS: ADMIT Internal Medicine
DX: J96.01 Acute respiratory failure with hypoxia (principal); J44.1 Chronic obstructive pulmonary disease with (acute) exacerbation; I50.22 Chronic systolic (congestive) heart failure; J96.02 Acute respiratory failure with hypercapnia; Z87.891 Personal history of nicotine dependence; J11.1 Influenza due to unidentified influenza virus with other respiratory manifestations; I48.0 Paroxysmal atrial fibrillation
CPT/HCPCS: 36415; 36600; 71045; 71046; 80053; 80069; 81001; 82803; 83605; 83735; 83880; 84484; 85025; 87040; 87502; 93005; 93010; 93306; 94640; 94660; 94761; 94762; 96374; 96375; 99285; 99406; J1650; J2405; J2920; J2930; J7030; J7120; J7512; Q0177